=== PATIENT | female | born 2000 | race Caucasian/White ===

== ENCOUNTER 2019-05-25 16:54 | Observation (INO) ==
[2019-05-25] MEDS ORDERED: NS 1,000 ML IV ONE (18:29)
[2019-05-25] MEDS ORDERED: ZOFRAN IV PRN (18:30)
[2019-05-25 19:25] LABS: BASO# 0.02 X1000 (0.0-0.2); BASO% 0.2 % (0.0-0.8); EOS# 0.14 X1000 (0.0-0.7); EOS% 1.7 % (0.0-10.0); HEMATOCRIT 38.8 % (37.0-47.0); LYMPH# 2.69 X1000 (1.2-3.4); MCH 30.3 PG (27-31); MCHC 33.5 g/dL (33-37); MCV 90.4 FL (81-99); MONO# 0.56 X1000 (0.11-0.59); MONO% 6.9 % (1.7-9.3); MPV 11.3 FL (7.4-10.4); NEUT# 4.74 X1000 (1.4-6.5); NEUT% 58.2 % (42.2-75.2); PLT 273 X1000 (130-400); RBC 4.29 XMIL (4.2-5.4); RDW 12.9 % (11.5-14.5); WBC 8.15 X1000 (4.8-10.8)
[2019-05-25 19:27] LABS: INR 1.01; PROTIME 13.4 Seconds (11.0-16.0)
[2019-05-25 19:50] LABS: AGAP 9; BUN 9 mg/dL (8-22); CALCIUM 8.5 mg/dL (8.8-10.2); CHLORIDE 108 mmol/L (98-107); COSMO 279; CREATININE 0.7 mg/dL (0.5-0.9); ESTIMATED GFR > 60; GLUCOSE 79 mg/dL (70-104); SODIUM 141 mmol/L (136-145); TCO2 24 mmol/L (25-35)
[2019-05-25 19:51] LABS: ALB/GLOB RATIO 1.4; ALBUMIN 3.7 g/dL (3.5-5.0); ALKALINE PHOSPHATASE 52 U/L (32-104); GOT 19 U/L (10-30); GPT 31 U/L (10-36); TOTAL PROTEIN 6.3 g/dL (6.3-8.3)
[2019-05-25] MEDS: SODIUM CHLORIDE 0.9% INJ SCH (20:09)
[2019-05-25] MEDS: PROTONIX IV SCH (20:09)
[2019-05-25] MEDS: NS 1,000 ML IV SCH (20:10)
--- NOTE | 2019-05-25 21:13 | HISTORY AND PHYSICAL ---
PRIMARY CARE PHYSICIAN: None. REASON FOR ADMISSION: Intentional abuse of NSAID and omeprazole. HISTORY OF PRESENT ILLNESS: Ms. Areli Trammell is a 18-year-old, woman with longstanding history of prior psychiatric problems and polysubstance abuse. She informs me that she ran out of her methamphetamines and opioids, and states that she could not get high, so she tried what was available to her, i.e. 30 tablets of 200 mg Motrin and 15 tablets of omeprazole. She said that personally she had no symptoms whatsoever after taking these medications 1 to 2 hours afterwards. She did tell her boyfriend who told her dad, who prompted her to come to the ER and be evaluated. She was brought to [facility] and because they did not have an ICU to observe her, she was transferred to our ICU for further observation. REVIEW OF SYSTEMS: 12 systems review was done. Patient denies any bleeding problems, no GI problems, problems, no cardiorespiratory problems, no cough, fever, chills. Denies any audio or visual hallucinations. No suicidal ideation. ALLERGIES: None. MEDICATIONS: None. SURGERY: Has had a cholecystectomy and D and C. FAMILY HISTORY: Mother has sleep apnea. SOCIAL HISTORY: Smokes 1 pack a day. No alcohol, but does abuse a variety of prescription medications and methamphetamines. LAB WORK: White count of 8000, hemoglobin and hematocrit 13 and 38, platelets 273,000. Normal differential. Calcium is 8.5. PT and PTT are normal. EKG was not done, but will be ordered. PHYSICAL EXAMINATION: VITAL SIGNS: Blood pressure 118/76, heart rate 71, respirations 16, temperature 98.3 degrees, oxygen saturation 96% on room air. GENERAL: She is a young, morbidly obese, woman who is not in acute distress. She is alert and oriented x3 with normal mood and affect. HEAD: Normocephalic, atraumatic. EYES: DANIELLE, EOMI. Anicteric. Not pale. ENT: Grossly normal. NECK: Supple. No JVD or carotid bruit. No thyromegaly. CHEST: Patient has right upper lobe localized wheeze. CARDIOVASCULAR: First and second sounds heard. No gallops, murmurs, rubs. Rhythm is regular. ABDOMEN: Protuberant, soft. No focal areas of tenderness or mass or megaly appreciated. Bowel sounds are normal. RECTAL: Deferred at this time. EXTREMITIES: Patient has good distal pulse volumes. They are regular and symmetrical. No edema, clubbing, cyanosis. NEUROLOGIC: No gross focal deficits. No tremors or asterixis. SKIN: Intact. No breakdown. MUSCULOSKELETAL: Grossly normal. ASSESSMENT: 1. Intentional overdose of nonsteroidal anti-inflammatory medication and proton pump inhibitor. 2. Morbid obesity. PLAN: 1. Will just review electrocardiogram and chest film ordered for the morning. 2. Start on high-dose proton pump inhibitors in view of ingestion of nonsteroidal anti- inflammatory medications to prevent gastrointestinal bleed. 3. Intravenous fluid resuscitation will be administered to maintain vascular hemodynamics. 4. Check a magnesium in the morning to ensure patient does not become hypomagnesemia from high- dose proton pump inhibitor. 5. Also monitor for diarrhea secondary to high-dose proton pump inhibitor. 6. Otherwise, if patient is stable in 24 hours, electrocardiogram is normal, and electrolytes are normal, she can hopefully be discharged thereafter. cc: Mariana Krishnamurthy MD
--- NOTE | 2019-05-25 22:32 | EKG Report ---
Test Performed on : 05/25/2019 10:14:18 PM Test Reason : drug od Blood Pressure : / mmHG Vent. Rate : 070 BPM Atrial Rate : 070 BPM P-R Int : 172 ms QRS Dur : 090 ms QT Int : 390 ms P-R-T Axes : 052 060 044 degrees QTc Int : 421 ms Normal sinus rhythm. with sinus arrhythmia. Low voltage QRS Borderline ECG No previous ECGs available Confirmed by Helene Blackmon MD ([id number]) on 05/30/2019 8:31:09 AM
[2019-05-26] MEDS: NS 1,000 ML IV SCH ×2 (03:27→10:45)
[2019-05-26 05:50] LABS: BASO# 0.02 X1000 (0.0-0.2); BASO% 0.4 % (0.0-0.8); EOS# 0.18 X1000 (0.0-0.7); EOS% 3.2 % (0.0-10.0); HEMATOCRIT 38.6 % (37.0-47.0); LYMPH# 2.79 X1000 (1.2-3.4); LYMPH% 49.8 % (20.5-51.1); MCH 30.4 PG (27-31); MCHC 33.7 g/dL (33-37); MCV 90.4 FL (81-99); MONO# 0.46 X1000 (0.11-0.59); MONO% 8.2 % (1.7-9.3); MPV 11.2 FL (7.4-10.4); NEUT# 2.15 X1000 (1.4-6.5); NEUT% 38.4 % (42.2-75.2); PLT 245 X1000 (130-400); RBC 4.27 XMIL (4.2-5.4); RDW 13.1 % (11.5-14.5)
[2019-05-26 06:22] LABS: AGAP 11; BUN 6 mg/dL (8-22); CALCIUM 7.5 mg/dL (8.8-10.2); CHLORIDE 113 mmol/L (98-107); COSMO 288; CREATININE 0.6 mg/dL (0.5-0.9); ESTIMATED GFR > 60; GLUCOSE 90 mg/dL (70-104); MAGNESIUM 1.8 mg/dL (1.5-2.7); POTASSIUM 4.2 mmol/L (3.5-5.1); SODIUM 146 mmol/L (136-145); TCO2 22 mmol/L (25-35)
--- NOTE | 2019-05-26 07:15 | Diag Imaging Result Doc PS360 ---
EXAM: CHEST-2 VIEWS 05/26/2019 HISTORY: RUL wheeze TECHNIQUE: PA and lateral chest COMMENT: There is no evidence of acute cardiac or pulmonary disease and no previous studies are available for comparison. IMPRESSION: No acute disease. Electronically signed by Luis Alberto Bowers 05/26/2019 7:13 AM
[2019-05-26] MEDS ORDERED: NICODERM PATCH TD ONE (07:28)
[2019-05-26] MEDS: SODIUM CHLORIDE 0.9% INJ SCH (07:53)
[2019-05-26] MEDS: PROTONIX IV SCH (07:53)
[2019-05-26 14:12] VITALS: BP 127/92
--- NOTE | 2019-05-27 01:53 | DISCHARGE SUMMARY ---
ADMISSION DATE: 05/25/2019 DISCHARGE DATE: 05/26/2019 PRIMARY CARE PROVIDER: None. PERTINENT PROCEDURES: 1. Chest x-ray, no acute disease. 2. EKG, normal sinus rhythm with a sinus arrhythmia and a QTc of 421. DISCHARGE DIAGNOSIS: 1. Intentional overdose on nonsteroidal antiinflammatory drugs and proton pump inhibitor. The patient was transferred from [facility] secondary to not having a functioning ICU. She was monitored overnight for her QTc and will be discharged home today. 2. Morbid obesity. HOSPITAL COURSE: Briefly, Ms. Trammell is a 18-year-old female with a longstanding history of psychiatric problems and polysubstance abuse. She ran out her methamphetamines and opiates, could not get high so she tried to get high with 30 tablets of 200 mg Motrin and 15 tablets of Prilosec. She reported no symptoms after taking the medications. However, 1 to 2 hours afterward she did tell her boyfriend who told her father and she was brought to the ED to be evaluated. At [facility] secondary to not having an ICU to observe her, she was transferred to [facility] ICU for further evaluation and to monitor her QTc. She was aggressively hydrated overnight. Chest x-ray did not show anything acute this morning and was started on a high dose PPI given that she ingested NSAIDs. Her magnesium level is stable at the time of discharge at 1.8 and she is being discharged back home today with her grandfather. VITAL SIGNS: Temperature is 97.7 degrees, heart rate 60, respirations 14, blood pressure 107/72, O2 is 98% on room air. DISCHARGE DIET: Regular. DISCHARGE MEDICATIONS: None. FOLLOW-UP: Ms. Trammell is being discharged back home with her grandfather. She is to follow up with a primary care provider of her choosing as well as to continue to follow up with her psychiatric doctor. She can return to the ED or call 911 for any worsening of symptoms. Dictated by CRISTI Rivero for Tyrone Vance MD cc: Tyrone Vance MD
== END 2019-05-26 15:10 | disposition home or self-care (01) | DRG 918 ==
LOC: DIRADM 16:54 → INTOOBSV 16:54 → SUATTDRO 16:54 → ICU 18:29
PROVIDERS: ATTEND Internal Medicine